=== PATIENT | female | born 1950 | race Caucasian/White ===

== ENCOUNTER → 2017-07-26 | Outpatient (CLI) | payer MEDICARE, OTHER ==
--- NOTE | 2017-07-26 13:43 | REPMRS ---
Patient History The patient states she had a clinical breast exam in 07/2017. Patient is postmenopausal. No known family history of cancer. Benign excisional biopsy of the right breast, 2001. Benign excisional biopsy of the left breast, 1985. Digital Woman Screen Mammo: July 26, 2017 - Exam #: [id number] Bilateral CC and MLO view(s) were taken. Technologist: Mary Ann Segovia Technologist Prior study comparison: July 25, 2016, digital woman screen mammo performed at [facility]. July 23, 2015, digital woman screen mammo performed at [facility]. July 22, 2014, digital woman screen mammo performed at [facility]. FINDINGS: There are scattered fibroglandular densities. There has been no change in the appearance of the mammogram from the prior studies. There is a mild amount of scattered fibroglandular density which is fairly symmetric. There is no interval development of dominant mass, architectural distortion, or clustered microcalcification suggestive of malignancy. ASSESSMENT: BI-RADS/ACR category 1 mammogram. Negative. Recommendation Routine screening mammogram in 1 year (for women over age 40). This mammogram was interpreted with the aid of an FDA-approved computer-aided dectection system. Electronically Signed By: Audi Resendez MD 07/26/17 [id number]
== END ==
LOC: M WHC 10:49
PROVIDERS: ATTEND Nurse Practitioner Family
DX: Z01.419 Encounter for gynecological examination (general) (routine) without abnormal findings (principal); Z12.31 Encounter for screening mammogram for malignant neoplasm of breast; Z78.0 Asymptomatic menopausal state; Z12.12 Encounter for screening for malignant neoplasm of rectum; Z92.89 Personal history of other medical treatment
CPT/HCPCS: 82270; G0101; G0123; G0202

== ENCOUNTER → 2017-08-09 | Outpatient (REF) | payer MEDICARE, OTHER | LOC: M SFHCWAGY 11:48 | PROVIDERS: ATTEND Nurse Practitioner Family | DX: R82.90 Unspecified abnormal findings in urine (principal) ==

== ENCOUNTER → 2017-09-05 | Outpatient (REF) | payer MEDICARE, OTHER | LOC: M SMT 14:05 | PROVIDERS: ATTEND Nurse Practitioner Women's Health | DX: R31.29 Other microscopic hematuria (principal) ==

== ENCOUNTER → 2018-11-08 | Outpatient (CLI) | payer MEDICARE, OTHER ==
--- NOTE | 2018-11-08 19:03 | REPMRS ---
Patient History The patient states she had a clinical breast exam in 10/2018. Patient is postmenopausal. No known family history of cancer. Benign excisional biopsy of the right breast, 2001. Benign excisional biopsy of the left breast, 1985. No Hormone Replacement Therapy Digital Woman Screen Mammo: November 08, 2018 - Exam #: [id number] Bilateral CC and MLO view(s) were taken. Technologist: Lupe Hendricks, Technologist Prior study comparison: July 26, 2017, digital woman screen mammo performed at [facility]. July 25, 2016, digital woman screen mammo performed at [facility]. FINDINGS: There are scattered fibroglandular densities. There has been no change in the appearance of the mammogram from the prior studies. There is a mild amount of residual fibroglandular tissue which is fairly symmetric. There is no interval development of dominant mass, architectural distortion, or clustered microcalcification suggestive of malignancy.There are scattered, small, benign calcifications of doubtful clinical significance. Large coarse benign appearing calcifications are stable. 3-D tomosynthesis shows no additional findings. The patient's Tyrer-Cuzick lifetime risk assessment score is 6.2 %. No significant changes when compared with prior studies. Assessment: BI-RADS/ACR category 2 mammogram. Benign Findings. Recommendation Routine screening mammogram in 1 year (for women over age 40). This mammogram was interpreted with the aid of an FDA-approved computer-aided dectection system. A. Negative x-ray reports should not delay biopsy if a dominant or clinically suspicious mass is present. B. Four to eight percent of cancers are not identified by mammography. C. Adenosis and dense breast may obscure an underlying neoplasm. Electronically Signed By: Seb Rice MD 11/08/18 0200
--- NOTE | 2018-11-13 14:50 | DEXA ---
AP SPINE L1 - L4 0.930 -2.1 -0.5 LT FEMUR TOTAL 0.986 -0.2 1.1 LT NECK 0.871 -1.2 0.4 RT FEMUR TOTAL 0.996 -0.1 1.2 RT NECK 0.944 -0.7 0.9 TOTAL BODY TOTAL OTHER COMMENTS: Normal bone densitometry of the right hip. There is low bone density of the spine. There is low bone density of the left hip. The decreased density of the spine does represent a significant change since 07/25/2016. The decreased density of the left hip does not represent a significant change since 07/25/2016. The decreased density of the right hip does represent a significant change. The density of the spine has decreased 12.6% since the initial exam on 09/03/2002. The spine density has decreased 1.0% since the most recent exam on 07/25/2016. The density of the left hip has decreased 6.3% since the initial exam on 09/03/2002. The density of the left hip has decreased 1.3% since the most recent exam on 07/25/2016. The density of the right hip has decreased 3.1% since the initial exam on 04/21/2009. The density of the right hip has decreased 1.6% since the most recent exam on 07/25/2016. FOLLOW-UP: Recommendation for the next bone density exam: 2 years. JUSTO
== END ==
LOC: M WHC 13:10
PROVIDERS: ATTEND Nurse Practitioner Family
DX: Z01.419 Encounter for gynecological examination (general) (routine) without abnormal findings (principal); Z12.31 Encounter for screening mammogram for malignant neoplasm of breast; N95.9 Unspecified menopausal and perimenopausal disorder; Z78.0 Asymptomatic menopausal state; Z86.018 Personal history of other benign neoplasm; R92.1 Mammographic calcification found on diagnostic imaging of breast
CPT/HCPCS: 77063; 77067; 77080; G0101

== ENCOUNTER → 2019-02-01 | Outpatient (CLI) | payer MEDICARE, OTHER ==
[2019-02-01 13:06] LABS: RUBELLA IgG QUALITATIVE IMMUNE (IMMUNE)
[2019-02-05 14:10] LABS: RUBEOLA IgG ANTIBODY >300.0 AU/mL (Immune >29.9)
== END ==
LOC: M WUC 09:02
PROVIDERS: ATTEND Physician Assistant
DX: Z02.1 Encounter for pre-employment examination (principal)

== ENCOUNTER → 2020-02-19 | Outpatient (CLI) | payer MEDICARE, OTHER ==
--- NOTE | 2020-02-19 12:26 | REPMRS ---
Patient History The patient states she had a clinical breast exam in February 2020. Patient is postmenopausal. Family history of lymphoma at age 62 in sister. Benign excisional biopsy of the right breast, 2001. Benign excisional biopsy of the left breast, 1985. No Hormone Replacement Therapy 3D TOMOSYNTHESIS WAS PERFORMED. [facility] lifetime risk for breast cancer is 5.8%. VOLPARA DENSITY B. Digital Woman Screen Mammo: February 19, 2020 - Exam #: [id number] Bilateral CC and MLO view(s) were taken. Technologist: Verona Henriquez, Technologist Prior study comparison: November 08, 2018, bilateral digital woman screen mammo performed at [facility]. July 26, 2017, digital woman screen mammo performed at [facility]. FINDINGS: There are scattered fibroglandular densities. There has been no change in the appearance of the mammogram from the prior studies. There is a mild amount of residual fibroglandular tissue which is fairly symmetric. There is no interval development of dominant mass, architectural distortion, or clustered microcalcification suggestive of malignancy. Assessment: BI-RADS/ACR category 1 mammogram. Negative Mammogram. Recommendation Routine screening mammogram in 1 year (for women over age 40). This mammogram was interpreted with the aid of an FDA-approved computer-aided dectection system. Electronically Signed By: Freeman Perez MD 02/19/20 [id number]
== END ==
LOC: M WHC 10:55
PROVIDERS: ATTEND Nurse Practitioner Family
DX: Z12.31 Encounter for screening mammogram for malignant neoplasm of breast (principal); Z78.0 Asymptomatic menopausal state; Z80.7 Family history of other malignant neoplasms of lymphoid, hematopoietic and related tissues; Z86.018 Personal history of other benign neoplasm
CPT/HCPCS: 77063; 77067; G0463

== ENCOUNTER → 2021-10-18 | Outpatient (REF) | payer MEDICARE, OTHER | LOC: M LAB REF 13:57 | PROVIDERS: ATTEND Nurse Practitioner Family | DX: D04.61 Carcinoma in situ of skin of right upper limb, including shoulder (principal) | CPT/HCPCS: 11102; 17000; 88305; G0463 ==

== ENCOUNTER → 2021-12-15 | Outpatient (CLI) | payer MEDICARE, OTHER | LOC: M WHC 08:39 | PROVIDERS: ATTEND Obstetrics & Gynecology | DX: Z12.31 Encounter for screening mammogram for malignant neoplasm of breast (principal); Z80.9 Family history of malignant neoplasm, unspecified ==

== ENCOUNTER 2022-06-25 14:26 | Emergency (ER) | payer MEDICARE, OTHER ==
[~2022-06-25] VITALS: Ht 160 cm; Wt 72.7 kg
[2022-06-25] MEDS ORDERED: ACETAMINOPHEN 325 MG TAB PO ONE (16:15)
[2022-06-25] MEDS ORDERED: PERC5TAB12 PO (17:48)
[2022-06-25 18:12] VITALS: BP 185/82
== END 2022-06-25 18:24 | disposition home or self-care (01) ==
LOC: M ED 14:26
DX: S82.252A Displaced comminuted fracture of shaft of left tibia, initial encounter for closed fracture (principal); S82.852A Displaced trimalleolar fracture of left lower leg, initial encounter for closed fracture; W01.0XXA Fall on same level from slipping, tripping and stumbling without subsequent striking against object, initial encounter; I10 Essential (primary) hypertension; Y92.009 Unspecified place in unspecified non-institutional (private) residence as the place of occurrence of the external cause; Y93.9 Activity, unspecified; Y99.9 Unspecified external cause status; Z88.0 Allergy status to penicillin; Z79.899 Other long term (current) drug therapy

== ENCOUNTER → 2023-01-25 | Outpatient (CLI) | payer MEDICARE, OTHER ==
[~2023-01-25] MED LIST: PERC5TAB12 PO
== END ==
LOC: M WHC 12:48
PROVIDERS: ATTEND Obstetrics & Gynecology
DX: Z12.31 Encounter for screening mammogram for malignant neoplasm of breast (principal)

== ENCOUNTER → 2024-05-06 | Outpatient (CLI) | payer MEDICARE, OTHER | LOC: M WHC 07:27 | PROVIDERS: ATTEND Obstetrics & Gynecology | DX: Z12.31 Encounter for screening mammogram for malignant neoplasm of breast (principal); Z13.820 Encounter for screening for osteoporosis; S32.009A Unspecified fracture of unspecified lumbar vertebra, initial encounter for closed fracture; M85.89 Other specified disorders of bone density and structure, multiple sites ==

== ENCOUNTER → 2024-08-27 | Outpatient (REF) | payer MEDICARE, OTHER ==
[2024-08-27 21:28] LABS: BLOOD UREA NITROGEN 17 MG/DL (9-23); CALCIUM LEVEL 8.9 MG/DL (8.3-10.6); CARBON DIOXIDE LEVEL 27 MMOL/L (20-31); CHLORIDE LEVEL 107 MMOL/L (98-107); GLOMERULAR FILTRATION RATE > 60.0 (>39); GLUCOSE, FASTING 161 MG/DL (74-106); POTASSIUM SERUM 4.2 MMOL/L (3.5-5.1); SODIUM LEVEL 141 MMOL/L (136-145)
== END ==
LOC: M LAB REF 21:01
PROVIDERS: ATTEND Internal Medicine
DX: I10 Essential (primary) hypertension (principal)

== ENCOUNTER → 2025-05-07 | Outpatient (CLI) | payer MEDICARE, OTHER ==
[~2025-05-07] MED LIST changes: +BENA1TAB24 PO; +CALCCHW19 PO; +HYDR50TA70 PO
== END ==
LOC: M WHC 10:55
PROVIDERS: ATTEND Internal Medicine
DX: Z12.31 Encounter for screening mammogram for malignant neoplasm of breast (principal); R92.313 Mammographic fatty tissue density, bilateral breasts

== ENCOUNTER 2025-05-14 11:21 | Day surgery (SDC) | payer MEDICARE, OTHER ==
[~2025-05-14] VITALS: Ht 160 cm; Wt 73.9 kg
[2025-05-14] MEDS ORDERED: ACET-1349 PO (11:35)
[2025-05-14] MEDS ORDERED: LIDOCAINE 2% 100 MG/5 ML SDV (FOR ANES.) As Ordered ONE (12:40)
[2025-05-14 13:11] VITALS: BP 142/82; O2SAT 98
== END 2025-05-14 13:30 | disposition home or self-care (01) ==
LOC: M OPP 11:21
PROVIDERS: ATTEND Internal Medicine Gastroenterology
DX: Z12.11 Encounter for screening for malignant neoplasm of colon (principal); K64.0 First degree hemorrhoids; Z88.0 Allergy status to penicillin; Z79.899 Other long term (current) drug therapy